=== PATIENT | male | born 1945 ===

== ENCOUNTER 2016-12-17 10:15 | Emergency (ER) | payer MEDICARE ==
[2016-12-17 10:32] VITALS: PULSE 99; RESP 20; TEMP 98; O2SAT 98
--- NOTE | 2016-12-17 11:01 | ED PDOC ---
HPI: General Adult Time Seen by Provider: 12/17/16 10:30 Chief Complaint (Nursing): Headache Chief Complaint (Provider): Numbness rt forearm History Per: Patient History/Exam Limitations: no limitations Onset/Duration Of Symptoms: Intermittent Episodes (1 month) Have you had recent travel within the past 21 days to any of the following countries: [place], [place], [place] or [place]?: No Current Symptoms Are (Timing): Still Present Additional History Per: Patient Additional Complaint(s): The pt is a 71yo male, sent to the ED by PCP for evaluation of intermittent numbness to his right forearm. Pt reports the symptoms are intermittently present below his right elbow, radiating to his right 4th adn 5th digit. Pt states he is unsure of a trigger for the symptoms and describes it as his "arm falling asleep" and states the sx resolve when he shakes his arm "awake." Pt states he told his PCP who was concerned because the pt has not been compliant with HTN medication. PCP is requesting a CT Head for further evaluation. Pt denies any vision changes, chest pain, abdominal pain, shortness of breath. Offers no additional medical complaints. Patient reports that his last episode of numbness was greater than 6 hours ago (at 630 this morning) and only involved numbness in his 4th and 5th R fingers. Negative stress test: 10/2014 PMD: Dr. Cote, Past Medical History Reviewed: Historical Data, Nursing Documentation, Vital Signs Vital Signs: Last Vital Signs Temp 98 F 12/17/16 10:30 Pulse 99 H 12/17/16 10:30 Resp 20 12/17/16 10:30 BP 142/90 12/17/16 13:55 Pulse Ox 98 12/17/16 13:30 - Medical History PMH: HTN - Surgical History Surgical History: No Surg Hx - Family History Family History: States: No Known Family Hx - Social History Current smoker - smoking cessation education provided: No Alcohol: None Drugs: Denies - Allergies Allergies/Adverse Reactions: Allergies Allergy/AdvReac Type Severity Reaction Status Date / Time No Known Allergies Allergy Verified 12/17/16 10:29 Review of Systems ROS Statement: Except As Marked, All Systems Reviewed And Found Negative Constitutional: Negative for: Fever, Chills Eyes: Negative for: Vision Change Cardiovascular: Negative for: Chest Pain, Palpitations, Paroxysmal Noc. Dyspnea , Edema, Light Headedness Respiratory: Negative for: Cough, Shortness of Breath, SOB with Exertion, Pleuritic Pain Gastrointestinal: Negative for: Nausea, Vomiting, Abdominal Pain, Diarrhea, Constipation Musculoskeletal: Negative for: Neck Pain Neurological: Positive for: Numbness (right forearm from below elbow radating to right 4th and 5th digits). Negative for: Incoordination, Change in Speech, Confusion, Seizures, Altered Mental Status, Headache Psych: Negative for: Anxiety, Depression Physical Exam - Reviewed Nursing Documentation Reviewed: Yes Vital Signs Reviewed: Yes - Physical Exam Appears: Positive for: Well, Non-toxic, No Acute Distress Head Exam: Positive for: ATRAUMATIC, NORMAL INSPECTION, NORMOCEPHALIC Skin: Positive for: Normal Color, Warm Eye Exam: Positive for: Normal appearance Neck: Positive for: Normal, Supple Cardiovascular/Chest: Positive for: Regular Rate, Rhythm Respiratory: Positive for: Normal Breath Sounds. Negative for: Respiratory Distress Pulses-Radial (L): 2+ Pulses-Radial (R): 2+ Gastrointestinal/Abdominal: Positive for: Soft. Negative for: Tenderness, Mass , Distended Back: Positive for: Normal Inspection. Negative for: L CVA Tenderness, R CVA Tenderness Extremity: Positive for: Normal ROM, Other (normal strength and ROM. Distal pulses intact). Negative for: Tenderness, Deformity, Swelling Neurologic/Psych: Positive for: Alert, Oriented. 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 Provider Attestation: All medical record entries made by the Scribe were at my direction and personally dictated by me. I have reviewed the chart and agree that the record accurately reflects my personal performance of the history, physical exam, medical decision making, and the department course for this patient. I have also personally directed, reviewed, and agree with the discharge instructions and disposition. 11:07AM EKG shows NSR at 70bpm wtih PACS, LAD, LVH, and t wave inversions in V5/V6 with flattening of t waves in III, AVF with no prior for comparsion with negative perfusion scan on 10/26/15 12:14PM CT shows...... COMPARISON: Noncontrast head CT performed 07/30/13, MRI brain without contrast performed . TECHNIQUE: Axial computed tomography images were obtained through the head/brain without intravenous contrast. Radiation dose: Total exam DLP = 788.27 mGy-cm. This CT exam was performed using one or more of the following dose reduction techniques: Automated exposure control, adjustment of the mA and/or kV according to patient size, and/or use of iterative reconstruction technique. FINDINGS: HEMORRHAGE: No intracranial hemorrhage. BRAIN: No mass effect or edema. Intracranial atherosclerosis. Scattered periventricular and subcortical white matter hypodensities, which are nonspecific, but often seen with chronic microvascular ischemic disease. Please note that MRI with diffusion imaging is more sensitive in the detection of acute ischemic event. VENTRICLES: No hydrocephalus. CALVARIUM: Unremarkable. PARANASAL SINUSES: Unremarkable as visualized. No significant inflammatory changes. MASTOID AIR CELLS: Minimal opacification of the left mastoid air cells. The right mastoid air cells appear clear. OTHER FINDINGS: None. IMPRESSION: Nonspecific white matter changes as above. Please note that MRI with diffusion imaging is more sensitive in the detection of acute ischemic event. Minimal opacification of the left mastoid air cells. Correlate clinically for possibility of mastoiditis. 12:14PM CT head as above. BP elevated but asymptomatic. Given home BP medication. Spoke to Dr. Wetzel who is aware of results. He reports that he was no prior EKG and recommends one set of cardiac enzymes to evaluate futher 8 hours from episode. 1:28PM 6 hour trop was performed and is negative. Stress test 2 years ago was normal. At no time has patient ever had chest pain, shortness of breath, diaphoresis, or lightheadedness. Numbness is isolated to R arm below the elbow and last episode was limited to only 4th and 5th digits. Patient was made aware of abnormal ekg. He was made aware of the importance of taking BP medication and following up with PMD for futher cardiac evaluation. He will return with any worsening symptoms. Disposition - Clinical Impression Clinical Impression: Numbness and tingling in right hand - Disposition Disposition: Routine/Home Disposition Time: 13:28 Condition: GOOD Additional Instructions: Your ekg is abnormal and there is no comparison available in the emergency room. You need to follow-up with Dr. Wetzel within 2 days for futher evaluation and cardiac referral. Return to ED if condition worsens or if you develop any chest pain. Take all medication as prescribed.
--- NOTE | 2016-12-17 12:13 | CT ---
PROCEDURE: CT HEAD WITHOUT CONTRAST. HISTORY: numbness COMPARISON: Noncontrast head CT performed 07/30/13, MRI brain without contrast performed 07/31/13. TECHNIQUE: Axial computed tomography images were obtained through the head/brain without intravenous contrast. Radiation dose: Total exam DLP = 788.27 mGy-cm. This CT exam was performed using one or more of the following dose reduction techniques: Automated exposure control, adjustment of the mA and/or kV according to patient size, and/or use of iterative reconstruction technique. FINDINGS: HEMORRHAGE: No intracranial hemorrhage. BRAIN: No mass effect or edema. Intracranial atherosclerosis. Scattered periventricular and subcortical white matter hypodensities, which are nonspecific, but often seen with chronic microvascular ischemic disease. Please note that MRI with diffusion imaging is more sensitive in the detection of acute ischemic event. VENTRICLES: No hydrocephalus. CALVARIUM: Unremarkable. PARANASAL SINUSES: Unremarkable as visualized. No significant inflammatory changes. MASTOID AIR CELLS: Minimal opacification of the left mastoid air cells. The right mastoid air cells appear clear. OTHER FINDINGS: None. IMPRESSION: Nonspecific white matter changes as above. Please note that MRI with diffusion imaging is more sensitive in the detection of acute ischemic event. Minimal opacification of the left mastoid air cells. Correlate clinically for possibility of mastoiditis.
[2016-12-17] MEDS ORDERED: NIFEdipine 60 mg ER Tab PO STA (12:25)
[2016-12-17 13:16] LABS: TROPONIN I 0.024 ng/mL (0.00-0.120)
[2016-12-17 13:55] VITALS: BP 142/90
--- NOTE | 2016-12-19 11:51 | CARD ---
APPROVED REPORT EKG Measurement Heart [id number] <Conclusion> Sinus rhythm with premature atrial complexes Possible Left atrial enlargement Left axis deviation Left ventricular hypertrophy Nonspecific T wave abnormality Prolonged QT Abnormal ECG
== END 2016-12-17 13:55 | disposition home or self-care (01) ==
LOC: H.ER 10:15
DX: R20.2 Paresthesia of skin (principal); I10 Essential (primary) hypertension; I49.1 Atrial premature depolarization; Z91.19 Patient's noncompliance with other medical treatment and regimen